=== PATIENT | male | born 1935 | race Caucasian/White ===

== ENCOUNTER 2016-12-13 15:49 | Inpatient (IN) | payer OTHER, BC ==
[~2016-12-13] VITALS: Ht 188 cm; Wt 121.1 kg
[~2016-12-13 15:49] MED LIST: CEFDINIR300 MG PO; FUROSEMIDE40 MG PO; JANUVIA25 M1 PO; LO-DOSE ASPIRIN81 M1 PO; METFORMIN HCL500 MG PO; METOPROLOL TART25 MG PO; MINOXIDIL10 MG PO; PERCOCET 5/31 TABLET PO; PRAVASTATIN SOD40 MG PO; SYNTHROID150 MCG PO; VALSARTAN-HCTZ1 EAC4 PO; VITAMIN B12 100MCG PO; ZOFRAN4 MG PO; ZYVOX600 MG PO; blood pressure med; furosemide; metformin; metoprolol; synthroid
[2016-12-13 16:36] LABS: HEMATOCRIT 25.3 % (38.0-50.0); MCH 27.3 PG (29.0-34.0); MCHC 31.2 G/DL (30.0-36.0); MCV 87.5 FL (86-99); MEAN PLAT.VOLUME 9.6 uM^3 (9.0-12.4); PLATELET COUNT 136 K/uL (156-360); RBC DIS.WIDTH-CV 16.9 % (11.8-14.6); RBC DIS.WIDTH-SD 54.2 % (39-53); RED BLOOD COUNT 2.89 M/uL (4.00-5.50); WHITE BLOOD COUNT 7.1 K/uL (4.1-10.2)
[2016-12-13 16:52] LABS: CHLORIDE 104 mEq/L (99-109); SODIUM 144 mEq/L (136-147)
[2016-12-13 16:54] LABS: GLUCOSE 110 mg/dL (70-99)
[2016-12-13 16:55] LABS: ANION GAP 11 MEQ/L (2-14)
[2016-12-13 16:58] LABS: GFR ESTIMATE (CALCULATED) 36 mL/min/
[2016-12-13 16:59] LABS: UREA NITROGEN (BUN) 43 mg/dL (9-23)
[2016-12-13 17:42] LABS: TROP-I INTERPRETATION NEGATIVE; TROPONIN-I 0.01 ng/mL (0.0-0.30)
[2016-12-13 18:57] LABS: ADD MIUA? NO; BILIRUBIN NEGATIVE; BLOOD NEGATIVE; COLOR STRAW ((YELLOW)); GLUCOSE (STRIP) NEGATIVE; KETONES NEGATIVE; LEUKOCYTES NEGATIVE; NITRITE NEGATIVE; PROTEIN (STRIP) NEGATIVE; SPECIFIC GRAVITY 1.009 (1.000-1.030); UCUL ADDED? NO; UROBILINOGEN 0.2 MG/DL (0.2-1.0)
[2016-12-13 19:47] LABS: ABSOLUTE RETICULOCYTE CT. 0.1 M/uL (0.02-0.08); IMM.RETIC FRACTION 30.8 % (3-19); RETIC HGB EQUIVALENT 26.2 (28-36)
[2016-12-13] MEDS ORDERED: DEMADEX20 MG PO (20:08)
[2016-12-13] MEDS ORDERED: ANORO ELLIPTA1 EACH IH (20:10)
[2016-12-13] MEDS ORDERED: GLIMEPIRIDE1 MG PO (20:10)
[2016-12-13 20:20] LABS: POINT-OF-CARE METER ID UU14100415
[2016-12-13 20:30] LABS: FERRITIN 23 NG/ML (22-322)
[2016-12-13 20:55] LABS: IRON 17 MCG/DL (35-150)
[2016-12-13 21:10] VITALS: BP 145/68
[2016-12-13 22:55] LABS: POINT-OF-CARE METER ID UU13113717
[2016-12-13 23:46] VITALS: BP 109/56
[2016-12-14 00:59] LABS: TROP-I INTERPRETATION NEGATIVE; TROPONIN-I 0.01 ng/mL (0.0-0.30)
[2016-12-14 03:15] VITALS: BP 110/54
[2016-12-14 06:17] LABS: TROP-I INTERPRETATION NEGATIVE; TROPONIN-I 0.02 ng/mL (0.0-0.30)
[2016-12-14 07:30] VITALS: BP 128/59
[2016-12-14 11:14] VITALS: BP 169/85
[2016-12-14 13:24] LABS: HEMATOCRIT 25.6 % (38.0-50.0); MCV 89.2 FL (86-99)
[2016-12-14 15:07] VITALS: BP 151/72
[2016-12-14 19:56] VITALS: BP 127/61
[2016-12-14 21:11] LABS: POINT-OF-CARE METER ID UU14188625
[2016-12-15 00:11] VITALS: BP 121/58
[2016-12-15 04:18] VITALS: BP 139/72
[2016-12-15 05:38] LABS: BASOPHIL COUNT 0.1 K/uL (0-0.1); EOSINOPHIL (%) 7.6 % (0-5); EOSINOPHIL COUNT 0.5 K/uL (0-0.3); HEMATOCRIT 23.8 % (38.0-50.0); IMMATURE GRANULOCYTE (%) 0.6 % (0.0-0.7); INSTRUMENT ABS NEUTROPHIL CT 4.3 K/uL; LYMPHOCYTE COUNT 1.3 K/uL (1.0-2.8); MCH 27.9 PG (29.0-34.0); MCHC 31.9 G/DL (30.0-36.0); MCV 87.5 FL (86-99); MEAN PLAT.VOLUME 10.4 uM^3 (9.0-12.4); MONOCYTE (%) 10.1 % (3-12); MONOCYTE COUNT 0.7 K/uL (0-0.8); NEUTROPHIL (%) 62.5 % (45-76); NEUTROPHIL COUNT 4.3 K/uL (1.8-6.4); PLATELET COUNT 132 K/uL (156-360); RBC DIS.WIDTH-SD 53.9 % (39-53); RED BLOOD COUNT 2.72 M/uL (4.00-5.50); WHITE BLOOD COUNT 6.9 K/uL (4.1-10.2)
[2016-12-15 06:32] LABS: ALKALINE PHOSPHATASE 94 IU/L (3-129); ANION GAP 11 MEQ/L (2-14); C-REACTIVE PROTEIN 14.2 MG/L (0-10); CHLORIDE 102 MEQ/L (99-109); GFR ESTIMATE (CALCULATED) 36 mL/min/; GLUCOSE 106 mg/dL (70-99); POTASSIUM 3.8 MEQ/L (3.7-5.4); SAMPLE HEMOLYSIS CHECK 0; SAMPLE ICTERIC CHECK 0; SAMPLE LIPEMIA CHECK 0; SODIUM 145 MEQ/L (136-147); TOTAL BILIRUBIN 0.8 MG/DL (0.0-1.0); UREA NITROGEN (BUN) 40 mg/dL (9-23)
[2016-12-15 07:21] VITALS: BP 126/65
[2016-12-15 07:49] LABS: POINT-OF-CARE METER ID UU13113717
[2016-12-15 09:18] LABS: ERTH.SED.RATE 44 MM/HR (0-20)
[2016-12-15 11:10] VITALS: BP 179/79
[2016-12-15 11:40] LABS: POINT-OF-CARE METER ID UU13113717
[2016-12-15 15:35] VITALS: BP 113/53
[2016-12-15 16:05] LABS: POINT-OF-CARE METER ID UU13113717
[2016-12-15 19:23] VITALS: BP 126/59
[2016-12-15 21:07] LABS: POINT-OF-CARE METER ID UU13113717
[2016-12-16] VITALS (7 sets, daily range): BP systolic 120–142; BP diastolic 58–76
[2016-12-16 06:40] LABS: ANION GAP 12 MEQ/L (2-14); CHLORIDE 97 MEQ/L (99-109); GFR ESTIMATE (CALCULATED) 39 mL/min/; GLUCOSE 91 mg/dL (70-99); POTASSIUM 3.6 MEQ/L (3.7-5.4); SAMPLE HEMOLYSIS CHECK 0; SAMPLE ICTERIC CHECK 0; SAMPLE LIPEMIA CHECK 0; SODIUM 142 MEQ/L (136-147); UREA NITROGEN (BUN) 39 mg/dL (9-23)
[2016-12-16 16:37] LABS: POINT-OF-CARE METER ID UU14188625
[2016-12-16 16:40] LABS: HEMATOCRIT 27.6 % (38.0-50.0); MCV 87.1 FL (86-99)
[2016-12-16 21:43] LABS: POINT-OF-CARE METER ID UU13113717
[2016-12-17 03:55] VITALS: BP 130/66
[2016-12-17 06:11] LABS: BASOPHIL COUNT 0.1 K/uL (0-0.1); EOSINOPHIL (%) 5.5 % (0-5); EOSINOPHIL COUNT 0.5 K/uL (0-0.3); HEMATOCRIT 27.3 % (38.0-50.0); IMMATURE GRANULOCYTE (%) 0.6 % (0.0-0.7); IMMATURE GRANULOCYTE COUNT 0.1 K/uL; INSTRUMENT ABS NEUTROPHIL CT 5.6 K/uL; LYMPHOCYTE COUNT 1.7 K/uL (1.0-2.8); MCH 26.9 PG (29.0-34.0); MCHC 31.5 G/DL (30.0-36.0); MCV 85.3 FL (86-99); MEAN PLAT.VOLUME 10.7 uM^3 (9.0-12.4); MONOCYTE (%) 8.9 % (3-12); MONOCYTE COUNT 0.8 K/uL (0-0.8); NEUTROPHIL (%) 64.4 % (45-76); NEUTROPHIL COUNT 5.6 K/uL (1.8-6.4); PLATELET COUNT 166 K/uL (156-360); RBC DIS.WIDTH-CV 17.1 % (11.8-14.6); RBC DIS.WIDTH-SD 52.6 % (39-53); WHITE BLOOD COUNT 8.7 K/uL (4.1-10.2)
[2016-12-17 06:34] LABS: ANION GAP 12 MEQ/L (2-14); CHLORIDE 95 MEQ/L (99-109); GFR ESTIMATE (CALCULATED) 41 mL/min/; GLUCOSE 105 mg/dL (70-99); POTASSIUM 3.8 MEQ/L (3.7-5.4); SAMPLE HEMOLYSIS CHECK 0; SAMPLE ICTERIC CHECK 0; SAMPLE LIPEMIA CHECK 0; SODIUM 141 MEQ/L (136-147); UREA NITROGEN (BUN) 38 mg/dL (9-23)
[2016-12-17 07:51] VITALS: BP 132/60
[2016-12-17] MEDS ORDERED: METOLAZONE5 MG PO (11:03)
[2016-12-17] MEDS ORDERED: BUMETANIDE1 MG PO (11:03)
[2016-12-17] MEDS ORDERED: FERROUS SULFAT325 MG PO (11:03)
[2016-12-17] MEDS ORDERED: APRESOLINE25 MG PO (11:03)
[2016-12-17 12:36] VITALS: BP 119/55
== END 2016-12-17 13:10 | disposition home or self-care (01) | DRG 682 ==
LOC: EME 15:49 → 5SOUTH 19:52 → EDOF 19:52 → 5SOUTH 20:46
PROVIDERS: Emergency Medicine; Hospitalist; Internal Medicine Nephrology; Physician Assistant Medical
DX: N17.9 Acute kidney failure, unspecified (principal); I50.33 Acute on chronic diastolic (congestive) heart failure; E11.22 Type 2 diabetes mellitus with diabetic chronic kidney disease; E11.622 Type 2 diabetes mellitus with other skin ulcer; I27.81 Cor pulmonale (chronic); I48.1 Persistent atrial fibrillation; I13.0 Hypertensive heart and chronic kidney disease with heart failure and stage 1 through stage 4 chronic kidney disease, or unspecified chronic kidney disease; D63.8 Anemia in other chronic diseases classified elsewhere; N18.3 Chronic kidney disease, stage 3 (moderate); E03.9 Hypothyroidism, unspecified; E78.5 Hyperlipidemia, unspecified; I25.10 Atherosclerotic heart disease of native coronary artery without angina pectoris; J44.9 Chronic obstructive pulmonary disease, unspecified; K21.9 Gastro-esophageal reflux disease without esophagitis; K59.00 Constipation, unspecified; L97.919 Non-pressure chronic ulcer of unspecified part of right lower leg with unspecified severity; R13.10 Dysphagia, unspecified; Z79.4 Long term (current) use of insulin; Z79.82 Long term (current) use of aspirin; Z79.84 Long term (current) use of oral hypoglycemic drugs; Z87.891 Personal history of nicotine dependence; Z96.651 Presence of right artificial knee joint; M54.9 Dorsalgia, unspecified; R35.0 Frequency of micturition; M79.89 Other specified soft tissue disorders; R10.9 Unspecified abdominal pain; R11.0 Nausea; R19.5 Other fecal abnormalities; R30.0 Dysuria; R63.0 Anorexia; Z68.37 Body mass index [BMI] 37.0-37.9, adult
CPT/HCPCS: 71020; 76770; 80048; 80053; 81003; 82272; 82607; 82728; 82746; 82948; 83540; 83880; 84466; 84484; 85014; 85018; 85025; 85027; 85045; 85651; 86140; 93005; 93306; 93970; 99281; 99285; J1200; J1644; J1815; J1940

== ENCOUNTER 2017-01-10 14:09 | Emergency (ER) | payer OTHER, BC ==
[~2017-01-10] VITALS: Ht 188 cm; Wt 111.3 kg
[~2017-01-10 14:09] MED LIST changes: +ANORO ELLIPTA1 EACH IH; +APRESOLINE25 MG PO; +BUMETANIDE1 MG PO; +DEMADEX20 MG PO; +FERROUS SULFAT325 MG PO; +GLIMEPIRIDE1 MG PO; +METOLAZONE5 MG PO
[2017-01-10 16:32] LABS: HEMATOCRIT 36.1 % (38.0-50.0); MCH 27.8 PG (29.0-34.0); MCHC 31.9 G/DL (30.0-36.0); MCV 87.4 FL (86-99); MEAN PLAT.VOLUME 9.3 uM^3 (9.0-12.4); PLATELET COUNT 204 K/uL (156-360); RBC DIS.WIDTH-SD 57.7 % (39-53); RED BLOOD COUNT 4.13 M/uL (4.00-5.50); WHITE BLOOD COUNT 9.9 K/uL (4.1-10.2)
[2017-01-10 16:37] LABS: CHLORIDE 96 mEq/L (99-109); POTASSIUM 3.9 mEq/L (3.7-5.4); SODIUM 139 mEq/L (136-147)
[2017-01-10 16:39] LABS: GLUCOSE 122 mg/dL (70-99)
[2017-01-10 16:40] LABS: ANION GAP 10 MEQ/L (2-14)
[2017-01-10 16:43] LABS: GFR ESTIMATE (CALCULATED) 52 mL/min/
[2017-01-10 16:44] LABS: UREA NITROGEN (BUN) 36 mg/dL (9-23)
[2017-01-10 16:52] LABS: ADD MIUA? NO; BILIRUBIN NEGATIVE; BLOOD NEGATIVE; COLOR YELLOW ((YELLOW)); GLUCOSE (STRIP) 50; KETONES NEGATIVE; LEUKOCYTES NEGATIVE; NITRITE NEGATIVE; PROTEIN (STRIP) NEGATIVE; SPECIFIC GRAVITY 1.013 (1.000-1.030); UROBILINOGEN 0.2 MG/DL (0.2-1.0)
[2017-01-10 19:40] VITALS: BP 137/66
== END 2017-01-10 19:57 | disposition home or self-care (01) ==
LOC: EXP 14:09 → EME 14:09 → EXP 19:57
PROVIDERS: Physician Assistant
DX: R60.0 Localized edema (principal); N28.9 Disorder of kidney and ureter, unspecified; E11.9 Type 2 diabetes mellitus without complications; K21.9 Gastro-esophageal reflux disease without esophagitis; I10 Essential (primary) hypertension; Z87.891 Personal history of nicotine dependence; Z79.84 Long term (current) use of oral hypoglycemic drugs; Z79.82 Long term (current) use of aspirin
CPT/HCPCS: 80048; 81003; 83880; 85027; 93970; 99281; 99285

== ENCOUNTER 2017-11-24 10:17 | Emergency (ER) | payer OTHER, BC ==
[~2017-11-24] VITALS: Ht 188 cm; Wt 116.0 kg
[2017-11-24] MEDS ORDERED: PERCOCET 5/31 TABLET PO (12:44)
[2017-11-24 13:24] VITALS: BP 130/73
== END 2017-11-24 13:27 | disposition home or self-care (01) ==
LOC: EME 10:17
DX: S32.020A Wedge compression fracture of second lumbar vertebra, initial encounter for closed fracture (principal); W01.0XXA Fall on same level from slipping, tripping and stumbling without subsequent striking against object, initial encounter; I48.91 Unspecified atrial fibrillation; I10 Essential (primary) hypertension; E11.9 Type 2 diabetes mellitus without complications; Z88.5 Allergy status to narcotic agent; Z88.0 Allergy status to penicillin
CPT/HCPCS: 72100; 72220; 99281; 99284